=== PATIENT | male | born 2000 | race Caucasian/White ===

== ENCOUNTER 2022-06-19 09:53 | Outpatient (CLI) | payer SELFPAY ==
[2022-06-19 11:08] LABS: #Eosinphils 0.3 10x3/uL (0.0-0.5); #Monocytes 0.6 10x3/uL (0.0-1.1); #Neutrophils 5.4 10x3/uL (1.5-8.4); %Basophils 0.3 % (0.0-2.0); %Eosinophils 3.1 % (0.0-6.0); %Lymphocytes 21.4 % (18.0-47.0); %Neutrophils 67.9 % (40.0-75.0); Mean Corpuscular HGB CONC 34.6 g/dL (32.0-36.0); Mean Corpuscular Hemoglobin 30.5 pg (27.0-33.0); Mean Corpuscular Volume 88.2 fl (81.2-95.1); Mean Platelet Volume 9.5 fl (7.4-10.4); Platelet Count 259 10x3/uL (150-450); RBC Distribution Width 12.2 % (11.5-14.5); Red Blood Cell (RBC) Count 5.25 10x6/uL (4.32-5.72)
== END 2022-06-19 09:54 | disposition home or self-care (01) ==
LOC: LABBT 09:53
PROVIDERS: ATTEND Orthopaedic Surgery Hand Surgery
DX: Z01.812 Encounter for preprocedural laboratory examination (principal); S62.337P Displaced fracture of neck of fifth metacarpal bone, left hand, subsequent encounter for fracture with malunion
CPT/HCPCS: 85025

== ENCOUNTER 2022-06-23 05:44 | Day surgery (SDC) | payer OTHER ==
[2022-06-19 13:30] VITALS: BMI 29.8
[2022-06-23] MEDS ORDERED: Bacitracin Zinc Ointment 30 gm TUBE ONE (06:25)
[2022-06-23] MEDS ORDERED: Bupivacaine PF 0.5% 30 ML VIAL ONE (06:25)
[2022-06-23] MEDS ORDERED: Neomycin-Polymyxin 1 ML AMP ONE (06:25)
[2022-06-23] MEDS ORDERED: Dexmedetomidine 200 MCG/2 ML VIAL ONE (06:27)
[2022-06-23] MEDS ORDERED: fentaNYL PF 100 MCG/2 ML SYRINGE ONE (06:27)
[2022-06-23] MEDS ORDERED: HYDROmorphone 0.5 MG/0.5 ML SYRINGE ONE (06:28)
[2022-06-23] MEDS ORDERED: CEFAZOLIN 2 GM VIAL ONE (06:55)
[2022-06-23] MEDS ORDERED: Sodium Chloride 0.9% 100 ML ONE (06:55)
[2022-06-23] MEDS ORDERED: PROPOFOL 200 MG/20 ML VIAL ONE (07:15)
[2022-06-23] MEDS ORDERED: Ketorolac Tromethamine 30 MG/ML VIAL ONE ×2 (07:15→08:45)
[2022-06-23] MEDS ORDERED: Metoclopramide HCl 10 MG/2 ML VIAL ONE (07:15)
[2022-06-23] MEDS ORDERED: PHENYLEPHRINE-NS 100 MCG/ML 10 ML SYRINGE ONE (07:15)
[2022-06-23] MEDS ORDERED: Ondansetron PF 4 MG/2 ML Vial ONE (07:15)
[2022-06-23] MEDS ORDERED: Lidocaine 1% PF 5 ML VIAL ONE (07:15)
[2022-06-23] MEDS ORDERED: Dexamethasone 20 MG/5 ML VIAL ONE (07:15)
[2022-06-23] MEDS ORDERED: Fentanyl 100 MCG/2 ML VIAL ONE (08:50)
[2022-06-23] MEDS ORDERED: HYDROcodone/Acetaminophen 5/325 mg Tablet ONE (10:29)
== END 2022-06-23 11:05 | disposition home or self-care (01) ==
LOC: SDC 05:44
PROVIDERS: ATTEND Orthopaedic Surgery Hand Surgery
PROC: 0PSQ04Z Reposition Left Metacarpal with Internal Fixation Device, Open Approach (ICD-10-PCS; principal; 2022-06-23)
DX: S62.337P Displaced fracture of neck of fifth metacarpal bone, left hand, subsequent encounter for fracture with malunion (principal); Z79.899 Other long term (current) drug therapy; W20.8XXD Other cause of strike by thrown, projected or falling object, subsequent encounter
CPT/HCPCS: C1894; J1100; J1170; J1885; J2405; J2704; J2765; J3010; J3490; S0020

== ENCOUNTER 2022-09-28 11:34 | Day surgery (SDC) | payer OTHER ==
[2022-09-25 10:10] VITALS: BMI 31.6
[2022-09-28] MEDS ORDERED: fentaNYL PF 100 MCG/2 ML SYRINGE ONE (12:20)
[2022-09-28] MEDS ORDERED: Bacitracin Zinc Ointment 30 gm TUBE ONE (12:57)
[2022-09-28] MEDS ORDERED: Bupivacaine PF 0.5% 30 ML VIAL ONE (12:57)
[2022-09-28] MEDS ORDERED: CEFAZOLIN 2 GM VIAL ONE (13:27)
[2022-09-28] MEDS ORDERED: Sodium Chloride 0.9% 100 ML ONE (13:27)
[2022-09-28] MEDS ORDERED: PROPOFOL 200 MG/20 ML VIAL ONE (14:10)
[2022-09-28] MEDS ORDERED: Lidocaine 1% PF 5 ML VIAL ONE (14:10)
[2022-09-28] MEDS ORDERED: fentaNYL 50 mcg/mL 1 mL Vial ONE (15:21)
[2022-09-28] MEDS ORDERED: Ketorolac Tromethamine 30 MG/ML VIAL ONE (15:30)
[2022-09-28] MEDS ORDERED: HYDROcodone/Acetaminophen 5/325 mg Tablet ONE (16:07)
== END 2022-09-28 16:50 | disposition home or self-care (01) ==
LOC: SDC 11:34
PROVIDERS: ATTEND Orthopaedic Surgery Hand Surgery
PROC: 0PPT04Z Removal of Internal Fixation Device from Right Finger Phalanx, Open Approach (ICD-10-PCS; principal; 2022-09-28)
DX: T84.84XA Pain due to internal orthopedic prosthetic devices, implants and grafts, initial encounter (principal); Y81.2 Prosthetic and other implants, materials and accessory general- and plastic-surgery devices associated with adverse incidents
CPT/HCPCS: J1885; J2704; J3010; J3490; S0020